=== PATIENT | male | born 1980 | race Caucasian/White ===

== ENCOUNTER 2017-06-18 20:48 | Emergency (ER) | payer BC ==
[~2017-06-18] VITALS: Ht 175.3 cm; Wt 86.2 kg
[~2017-06-18 20:48] MED LIST: ALLEVE; DOLOBID500 MG PO; PROTONIX PO; VICODIN 5/500 T1 TAB PO
[2017-06-18] MEDS ORDERED: NO MEDICATIONS (21:01)
== END 2017-06-18 21:34 | disposition home or self-care (01) ==
LOC: SED 20:48
DX: K04.7 Periapical abscess without sinus (principal); F17.210 Nicotine dependence, cigarettes, uncomplicated; Z88.0 Allergy status to penicillin
CPT/HCPCS: 99282